=== PATIENT | male | born 1985 | race Caucasian/White ===

== ENCOUNTER 2016-06-05 11:04 | Emergency (ER) | payer OTHER ==
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
[~2016-06-05 11:04] MED LIST: IBUPROFEN800 MG PO; KEFLEX500 MG PO; VICODIN 5/1 TAB 5/50 PO
== END 2016-06-05 13:53 | disposition home or self-care (01) ==
LOC: SED 11:04
DX: S13.4XXA Sprain of ligaments of cervical spine, initial encounter (principal); S00.83XA Contusion of other part of head, initial encounter; S80.02XA Contusion of left knee, initial encounter; S20.219A Contusion of unspecified front wall of thorax, initial encounter; F17.210 Nicotine dependence, cigarettes, uncomplicated; Z79.899 Other long term (current) drug therapy; W18.30XA Fall on same level, unspecified, initial encounter; Y92.830 Public park as the place of occurrence of the external cause
CPT/HCPCS: 12015; 70450; 70486; 71020; 72125; 73560; 96374; 96375; 99284; J0690; J1170; J2405